=== PATIENT | male | born 1985 | race Caucasian/White ===

== ENCOUNTER 2020-04-12 17:07 | Emergency (ER) | payer MEDICAID ==
[~2020-04-12] VITALS: Ht 172.7 cm; Wt 81.6 kg
--- NOTE | 2020-04-12 17:07 | NUR ---
Farhat TAMEZ, triaged by RN and transferred to ED lobby to wait for an available bed.
[2020-04-12 17:12] VITALS: BP 106/79
[2020-04-12 17:28] VITALS: BP 106/79
--- NOTE | 2020-04-12 17:28 | NUR ---
Patient discharged with v/s stable. Written and verbal after care instructions given and explained. Patient verbalized understanding. Ambulatory with steady gait. All questions addressed prior to discharge. Advised to follow up with PMD.
== END 2020-04-12 17:28 | disposition home or self-care (01) ==
LOC: MED 17:07
DX: T40.411A Poisoning by fentanyl or fentanyl analogs, accidental (unintentional), initial encounter (principal); R42 Dizziness and giddiness; Y92.89 Other specified places as the place of occurrence of the external cause
CPT/HCPCS: 99283